=== PATIENT | female | born 1970 | race Caucasian/White ===

== ENCOUNTER 2024-12-31 09:38 | Outpatient (CLI) | payer OTHER | END 2024-12-31 09:39 | disposition home or self-care (01) | LOC: BICRAD 09:38 | PROVIDERS: ATTEND Family Medicine | DX: M75.01 Adhesive capsulitis of right shoulder (principal); M54.2 Cervicalgia; G89.29 Other chronic pain; M19.011 Primary osteoarthritis, right shoulder; M75.31 Calcific tendinitis of right shoulder; M47.812 Spondylosis without myelopathy or radiculopathy, cervical region; Z98.1 Arthrodesis status | CPT/HCPCS: 72050 ==